=== PATIENT | male | born 1995 | race Caucasian/White ===

== ENCOUNTER 2017-01-18 14:34 | Emergency (ER) | payer OTHER ==
[2017-01-18] MEDS ORDERED: XYLOCAINE 1% 20 mL INFILTRATI ONE (15:09)
[2017-01-18] MEDS ORDERED: BOOSTRIX IM ONE (15:16)
[2017-01-18] MEDS ORDERED: ANCEF IM ONE (15:16)
--- NOTE | 2017-01-18 15:17 | XRay Report ---
RIGHT HAND, 3 views: History: Pain, injury. There is a metallic foreign body consistent with a nail which is embedded in the second metacarpal head. No associated displaced fracture is appreciated. The remaining bony structures are intact. No joint pathology. IMPRESSION: Foreign body embedded in the second metacarpal head as described.
--- NOTE | 2017-01-18 15:39 | Emergency Department Report ---
HPI - General Chief Complaint: Multiple Trauma Time Seen by Provider: 01/18/17 15:09 - HPI HPI: This is a 21-year-old male presents to emergency department with a complaint of a nail within the right index finger or the right hand that occurred at work earlier when he was using a nail gun to put up a fence. He is right-hand dominant. He is unsure the last time he had a tetanus vaccination. He did not take anything for her symptoms prior to presentation. ED Past Medical Hx - Past Medical History Previous Medical History?: No - Surgical History Past Surgical History?: No - Social History Smoking Status: Never Smoker Substance Use Type: None - Medications Home Medications: Home Medications Medication Instructions Recorded Confirmed Last Taken Type HYDROcodone/APAP 5-325 [[place] 1 each PO Q6HR PRN #10 tablet 01/18/17 Unknown Rx 5/325] Sulfamethoxazole/Trimethoprim 1 each PO BID #14 tablet 01/18/17 Unknown Rx [Bactrim DS TAB] ED Review of Systems ROS: Stated complaint: NAIL IN RIGHT HAND AT WORK Other details as noted in HPI Comment: All other systems reviewed and negative Constitutional: denies: chills, fever Eyes: denies: eye pain, eye discharge, vision change ENT: denies: ear pain, throat pain Respiratory: denies: cough, shortness of breath, wheezing Cardiovascular: denies: chest pain, palpitations Gastrointestinal: denies: abdominal pain, nausea, diarrhea Genitourinary: denies: urgency, dysuria Musculoskeletal: arthralgia. denies: back pain Skin: denies: rash, lesions Neurological: denies: headache, weakness, paresthesias Physical Exam - Physical Exam Vital Signs: Vital Signs 01/18/17 14:46 Temperature 98.7 F Pulse Rate 88 Respiratory 16 Rate Blood Pressure 151/88 O2 Sat by Pulse 99 Oximetry Physical Exam: GENERAL: The patient is well-developed well-nourished. HENT: Normocephalic. Atraumatic. Patient has moist mucous membranes. EYES: Extraocular motions are intact. Pupils equal reactive to light bilaterally. NECK: Supple. No meningitic signs are noted. There is no adenopathy noted. CHEST/LUNGS: Clear to auscultation. There is no respiratory distress noted. HEART/CARDIOVASCULAR: Regular. There is no tachycardia. There is no gallop rub or murmur. ABDOMEN: Abdomen is soft, nontender. Patient has normal bowel sounds. There is no abdominal distention. SKIN: Skin is warm and dry. No visible laceration or wound but there is a nail going into the radial portion of the distal right index finger at the MCP joint. NEURO: The patient is awake, alert, and oriented. The patient is cooperative. The patient has no focal neurologic deficits. The patient has normal speech and gait. MUSCULOSKELETAL: There is tenderness to palpation of the right hand and index finger where the patient has a nail embedded in the distal right index finger and/or MCP joint. Because of this foreign body there is some limitation to the range of motion of his index finger and this portion of his hand. Radial pulses are +2 over 4 bilaterally. Cap refill less than 2 seconds. ED Course Vital Signs 01/18/17 14:46 Temperature 98.7 F Pulse Rate 88 Respiratory 16 Rate Blood Pressure 151/88 O2 Sat by Pulse 99 Oximetry - Consultations Consultation #1: I spoke to the orthopedist on-call, Dr. Frank, who recommends local anesthesia and pulling out the nail followed by a pressure dressing around the wound and then follow-up with him in the office. 01/18/17 15:39 - Nerve Block Consent Obtained: verbal consent Time Out Performed: Yes Local Anesthetic Used: Lidocaine 1% Amount of anesthesia used: 6 Side: right Nerve Blocks: digital Procedure Successful: Yes Complications: none Patient Tolerated Procedure: well ED Medical Decision Making - Radiology Data Radiology results: image reviewed interpreted by me: X-ray of the right hand shows a radial opaque foreign body in the shape of a nail that appears to be embedded in the right index finger MCP joint. - Medical Decision Making 21-year-old male presents after accidentally shooting a nail from a nail gun into the right index finger. X-ray appears to show that it goes into the distal phalanx and/or towards the MCP joint. There are 2 barbs coming off of the nail as well. He was given a shot of Ancef and tetanus updated. I did a digital block with successful local anesthesia, however I was unable to remove the nail after speaking with the orthopedist. I then called Dr. Frank back and he was gracious enough to come into the emergency department and was able to remove the nail from the patient's hand. He recommended that the patient continue to increase the range of motion of that hand and did not require any splint but it was wrapped. I gave the patient a prescription for pain medication, antibiotics and a referral for follow-up with Dr. Frank. He will return to the ER with any signs or symptoms of infection. - Differential Diagnosis fracture, puncture wound, contusion, dislocation Critical Care Time: No Critical care attestation.: If time is entered above; I have spent that time in minutes in the direct care of this critically ill patient, excluding procedure time. ED Disposition Clinical Impression: Finger fracture, right Qualifiers: Encounter type: initial encounter Finger: index finger Fracture type: open Phalanx: proximal Fracture alignment: nondisplaced Qualified Code(s): S62.640B - Nondisplaced fracture of proximal phalanx of right index finger, initial encounter for open fracture Injury of finger by nail gun Qualifiers: Encounter type: initial encounter Laterality: right Qualified Code(s): S69.91XA - Unspecified injury of right wrist, hand and finger(s), initial encounter Disposition: TO HOME OR SELFCARE Is pt being admited?: No Condition: Stable Instructions: Finger Fracture (ED), Puncture Wound (ED) Additional Instructions: Please follow up with the orthopedist, Dr. Frank, in the next few days. Take the antibiotics as prescribed. He can clean the area with soap and water and then keep it dry. Return to the emergency Department with any signs or symptoms of infection. You have been prescribed a medication that is sedating and therefore should not be taken prior to driving, working, and responsible for children and in no way should be mixed with alcohol of any quantity. Prescriptions: HYDROcodone/APAP 5-325 [[place] 5/325] 1 each PO Q6HR PRN #10 tablet PRN Reason: Pain Sulfamethoxazole/Trimethoprim [Bactrim DS TAB] 1 each PO BID #14 tablet Referrals: PRIMARY MD YOVANI [Primary Care Provider] - 3-5 Days MARI FRANK MD [Staff Physician] - 3-5 Days Time of Disposition: 17:53
[2017-01-18] MEDS ORDERED: WATER FOR INJ (PF) 10 ML ONE (15:51)
[2017-01-18 16:26] VITALS: BP 132/58
[2017-01-18] MEDS ORDERED: XYLOCAINE 1% 20 mL ONE (17:21)
--- NOTE | 2017-01-19 12:43 | Consultation ---
History of Present Illness - HPI Consult reason: other (nail stuck in my right hand) History of present illness: 21 y/o male with c/o right hand pain after a nail accidental stuck into it from nail gun earlier in the day, denies numbness or loss of motion at finger Medications and Allergies Allergies Allergy/AdvReac Type Severity Reaction Status Date / Time No Known Allergies Allergy Unverified 01/18/17 14:46 Home Medications Medication Instructions Recorded Confirmed Last Taken Type HYDROcodone/APAP 5-325 [[place] 1 each PO Q6HR PRN #10 tablet 01/18/17 Unknown Rx 5/325] Sulfamethoxazole/Trimethoprim 1 each PO BID #14 tablet 01/18/17 Unknown Rx [Bactrim DS TAB] Physical Examination - Physical exam Narrative exam: At the right hand there's nail protruding from the volar surface 2nd finger in the region of the MCP joint, distal n/v intact xrays taken in the ER show nail enbedded to the metacarpal head area, no fx seen Assessment and Plan Asses - Foreign body right 2nd finger Plan/recommendation - given digital nerve block and nail removed under sterile conditions and w/o complications
== END 2017-01-18 16:15 | disposition home or self-care (01) ==
LOC: ED 14:34
DX: S62.640B Nondisplaced fracture of proximal phalanx of right index finger, initial encounter for open fracture (principal); X58.XXXA Exposure to other specified factors, initial encounter; Y93.9 Activity, unspecified; Y92.9 Unspecified place or not applicable; Y99.9 Unspecified external cause status
CPT/HCPCS: 64450; 73130; 90471; 90715; 96372; 99283; J0690